=== PATIENT | male | born 1965 | race Caucasian/White ===

== ENCOUNTER 2016-09-10 17:07 | Outpatient (CLI) | payer OTHER ==
--- NOTE | 2016-09-10 18:20 | DIAGNOSTIC IMAGING REPORT ---
PROCEDURE: US VENOUS - LEFT EXT INDICATION: LLE PAIN AND NUMBNESS TECHNIQUE: Duplex sonography of the deep venous system in the left lower extremity was performed. Compression and augmentation techniques were used. COMPARISON: None. FINDINGS: Normal compression of the greater saphenous, common femoral, superficial femoral, popliteal, peroneal, and posterior tibial veins. Normal augmentation. There is no evidence of superficial or deep venous thrombosis. IMPRESSION: 1. Negative venous ultrasound of the left lower extremity.
== END 2016-09-10 23:00 ==
LOC: US SRH 17:07
DX: M79.662 Pain in left lower leg (principal); R20.0 Anesthesia of skin